=== PATIENT | male | born 2000 | race Caucasian/White ===

== ENCOUNTER 2020-01-13 14:53 | Emergency (ER) | payer OTHER ==
[~2020-01-13] VITALS: Ht 180.3 cm; Wt 82.9 kg
[2020-01-13 14:54] VITALS: BP 122/70
[2020-01-13] MEDS ORDERED: MOTR200T44 PO (14:59)
--- NOTE | 2020-01-13 15:24 | REP ---
INDICATION: pain/swelling. COMPARISON: None. TECHNIQUE: Five views FINDINGS: Five views of the right knee demonstrate normal bones, joints, and soft tissues. No fracture or subluxation is seen. No opaque foreign body noted. IMPRESSION: Negative right knee series. <Electronically signed by Michael Howe > 01/13/20 1940
== END 2020-01-13 15:52 | disposition home or self-care (01) ==
LOC: M ED 14:53
DX: S89.91XA Unspecified injury of right lower leg, initial encounter (principal); X58.XXXA Exposure to other specified factors, initial encounter; Y92.9 Unspecified place or not applicable; Y93.9 Activity, unspecified; Y99.9 Unspecified external cause status

== ENCOUNTER → 2024-05-21 | Outpatient (REF) ==
[~2024-05-21] MED LIST: MOTR200T44 PO
== END ==
LOC: M PLAIMG 09:32
PROVIDERS: ATTEND Internal Medicine
DX: M25.571 Pain in right ankle and joints of right foot (principal); M25.572 Pain in left ankle and joints of left foot